=== PATIENT | male | born 1950 | race Hispanic/Latino ===

== ENCOUNTER → 2025-08-23 | Day surgery (SDC) | payer MEDICARE ==
[2025-08-17 12:18] LABS: BASOPHILS % 1.0 % (0.0-1.0); EOSINOPHILS % 3.8 % (0.0-6.0); LYMPHOCYTES % 32.4 % (18.0-39.1); MONOCYTES % 8.1 % (4.4-11.3); NEUTROPHILS % 54.3 % (38.7-80.0); RED CELL DISTRIBUTION WIDTH 15.8 % (11.7-14.4)
[~2025-08-23] MED LIST: ATORVASTATIN CA10 MG PO; CARVEDILOL12.5 MG PO; FARXIGA10 MG; FENTANYL CITRATE/PF 100MCG/2 ML INJ ONE; FOLIC ACID0.4 MG PO; GLYCOPYRROLATE INJ 0.2 MG/ML VIAL ONE; LIDOCAINE HCL 2% LOCAL INJ 5 ML SDV VIAL INJ ONE; LISINOPRIL10 MG PO; PHENYLEPHRINE HCL 1% 10 MG/ML VIAL ONE; POTASSIUM CHLO10 ME1 PO; PROPOFOL IV EMULSION 10 MG/ML 20 ML VIAL ONE; SERTRALINE HCL100 MG PO; SERTRALINE HCL50 MG PO; SODIUM CHLORIDE 0.9% 100 ML ONE; TORSEMIDE20 MG PO
[2025-08-23] MEDS: LACTATED RINGER'S 1,000 ML ONE (06:27)
[2025-08-23 07:27] VITALS: TEMP 97.2
[2025-08-23 07:40] VITALS: BP 112/70; PULSE 68; RESP 16; O2SAT 98
== END | disposition home or self-care (01) ==
LOC: OR 05:20
PROVIDERS: ATTEND Internal Medicine Gastroenterology
DX: Z12.11 Encounter for screening for malignant neoplasm of colon (principal); D50.9 Iron deficiency anemia, unspecified; K29.80 Duodenitis without bleeding; K29.50 Unspecified chronic gastritis without bleeding; K57.30 Diverticulosis of large intestine without perforation or abscess without bleeding; K64.8 Other hemorrhoids; I25.10 Atherosclerotic heart disease of native coronary artery without angina pectoris; I49.5 Sick sinus syndrome; I11.0 Hypertensive heart disease with heart failure; I50.9 Heart failure, unspecified; E78.5 Hyperlipidemia, unspecified; Z95.810 Presence of automatic (implantable) cardiac defibrillator; Z79.899 Other long term (current) drug therapy; Z01.810 Encounter for preprocedural cardiovascular examination; Z01.812 Encounter for preprocedural laboratory examination
CPT/HCPCS: 43239; G0121; 36415; 45378; 85025; 88305; 88342; 93005; J2003; J2371; J7050